=== PATIENT | male | born 1950 | race Caucasian/White ===

== ENCOUNTER 2017-11-10 10:04 | Emergency (ER) | payer OTHER, MEDICARE ==
[~2017-11-10] VITALS: Ht 177.8 cm; Wt 104.8 kg
[~2017-11-10 10:04] MED LIST: AMLODIPINE BESYL5 MG PO; BACTRIM,SEPT1 TABLET PO; BYSTOLIC10 MG PO; DAILY VITAMIN1 EAC8 PO; KEFLEX500 MG PO; LEVEMIR FL100 UNITS/ SC; LO-DOSE ASPIRIN81 M1 PO; NOVOLOG100 UNIT/1 SC; ZESTRIL40 MG PO
[2017-11-10 10:57] LABS: HEMATOCRIT 39.6 % (38.0-50.0); HEMOGLOBIN 14.3 G/DL (12.5-16.6); MCH 29.8 PG (29.0-34.0); MCHC 36.1 G/DL (30.0-36.0); MCV 82.5 FL (86-99); PLATELET COUNT 260 K/uL (156-360); RBC DIS.WIDTH-CV 12.9 % (11.8-14.6); RBC DIS.WIDTH-SD 38.2 % (39-53)
[2017-11-10 11:08] LABS: CHLORIDE 106 mEq/L (99-109); POTASSIUM 3.8 mEq/L (3.7-5.4); SODIUM 141 mEq/L (136-147)
[2017-11-10 11:09] LABS: GLUCOSE 188 mg/dL (70-99)
[2017-11-10 11:13] LABS: CREATININE 0.9 mg/dL (0.6-1.3); GFR ESTIMATE (CALCULATED) > 59 mL/min/ (58.99-99999)
[2017-11-10 11:14] LABS: UREA NITROGEN (BUN) 13 mg/dL (9-23)
[2017-11-10 12:57] LABS: TROP-I INTERPRETATION NEGATIVE; TROPONIN-I 0.01 ng/mL (0.0-0.30)
[2017-11-10 14:54] VITALS: BP 167/112
== END 2017-11-10 14:54 | disposition home or self-care (01) ==
LOC: EME 10:04
PROVIDERS: Emergency Medicine; Nurse Practitioner Family
DX: R05 Cough (principal); E11.9 Type 2 diabetes mellitus without complications; I10 Essential (primary) hypertension; Z79.82 Long term (current) use of aspirin; Z86.73 Personal history of transient ischemic attack (TIA), and cerebral infarction without residual deficits
CPT/HCPCS: 71046; 80048; 84484; 85027; 87502; 93005